=== PATIENT | male | born 1990 | race Caucasian/White ===

== ENCOUNTER 2019-01-22 09:36 | Emergency (ER) | payer SELFPAY ==
[~2019-01-22] VITALS: Ht 185.4 cm; Wt 72.6 kg
[2019-01-22 09:40] VITALS: BP 172/97
[2019-01-22] MEDS ORDERED: LORazepam 1 MG TAB PO ONE (09:45)
--- NOTE | 2019-01-22 09:45 | NUR ---
28 Y.O. MALE. BIBA. PT CAME IN WITH 4 POINT RESTRAINTS. PT ADMITS TO USE OF METHAMPHETAMINE. PER EMS PT RAN OUT OF GAS AND WAS PULLED OVER BY PD. PT WAS FOUND TO BE UNDER THE INFLUENCE WHILE DRIVING. BROUGHT IN TO ED FOR PRE BOOKING. PT WAS GIVEN VERSED 5 MG IM L DELTOID BY EMS FOR ANXIETY. AAO X4. ABLE TO VERBALIZE NEEDS. PERRLA, BRISK 7 MM. EQUAL BILATERAL UPPER AND LOWER EXTREMITIES. NO SOB NOTED. PAIN STATES 5/10 TO LOWER BACK. PT PLACED ON LEAD ELECTRICAL ENGINEER. HOB UP. ON LOW BED POSITION, LOCKED. BED SIDE RAILS UP X2. ER MADE AWARE OF PT STATUS. WILL CONTINUE TO MONITOR.
--- NOTE | 2019-01-22 09:47 | NUR ---
DR STEPHENS AT BEDSIDE FOR PT EVALUATION
--- NOTE | 2019-01-22 09:50 | NUR ---
ANXIOUS, COOPERATIVE AAO X 4 PT, TOOK ORAL 1 MG ATIVAN PILL WITHOUT DIFFICULTY, ASKING FOR MORE MEDICATIONS, DR STEPHENS AWARE.
[2019-01-22] MEDS ORDERED: LORazepam 1 MG TAB ONE (09:52)
--- NOTE | 2019-01-22 10:15 | NUR ---
[address] [place] [employer] AT BEDSIDE WITH CONTRACTED LAB PERSONNEL FROM [employer]
--- NOTE | 2019-01-22 10:20 | NUR ---
PT PREFER TO BE ON RESTRAINT OVER THE HAND CUFF, [place] [employer] AT BEDSIDE. [employer]ER[employer] TE[employer]ER LINDA AND DR STEPHENS NOTIFIED.
--- NOTE | 2019-01-22 10:35 | NUR ---
ANXIOUS COOPERATIVE PT TAKEN OFF 4 POINT RESTRAINT AND RT HAND PLACED ON HANDCUFF BY LEO REED
--- NOTE | 2019-01-22 10:43 | NUR ---
Elaina castellanos in EDM - 01/22/19 at 1106 by ADRIAN PT PREFER TO BE ON RESTRAINT OVER THE HAND CUFF, [place] [employer] AT BEDSIDE. [employer] LINDA AND DR STEPHENS NOTIFIED.
--- NOTE | 2019-01-22 11:00 | NUR ---
LAB AT BEDSIDE
[2019-01-22 11:09] LABS: EOSINOPHILS % (AUTO) 0.3 % (0.0-4.0); HEMATOCRIT 45.1 % (36-52); HEMOGLOBIN 15.8 g/dL (12.0-18.0); LYMPHOCYTES # (AUTO) 0.4 K/uL (2.0-11.5); LYMPHOCYTES % (AUTO) 3.1 % (20.5-51.1); MEAN CORPUSCULAR HEMOGLOBIN 30 pg (27-31); MEAN CORPUSCULAR HGB CONC 35 g/dL (33-37); MEAN CORPUSCULAR VOLUME 84.5 fL (80-94); MONOCYTES # (AUTO) 0.8 K/uL (0.8-1.0); MONOCYTES % (AUTO) 6.1 % (1.7-9.3); NEUTROPHILS # (AUTO) 12.4 K/uL (1.8-7.7); NEUTROPHILS % (AUTO) 90.5 % (42.2-75.2); PLATELET COUNT (AUTO) 346 K/uL (140-450); RED BLOOD CELL COUNT(AUTO) 5.33 MIL/uL (4.20-6.10); RED CELL DISTRIBUTION WIDTH 13.8 % (11.6-13.7); WHITE BLOOD COUNT (AUTO) 13.7 K/uL (4.8-10.8)
[2019-01-22] MEDS ORDERED: HALOPERIDOL IM 5 MG/ML VIAL IM ONE (11:15)
--- NOTE | 2019-01-22 11:15 | NUR ---
PT IS VERY ANXIOUS AND HYPERVENTILATING. DR STEPHENS MADE AWARE.
[2019-01-22] MEDS ORDERED: HALOPERIDOL IM 5 MG/ML VIAL ONE (11:24)
[2019-01-22 11:26] LABS: ANION GAP 20.7 (8-16); CARBON DIOXIDE 22.7 mmol/L (21-32); POTASSIUM 3.4 mmol/L (3.5-5.1)
[2019-01-22 11:32] LABS: ALBUMIN 4.8 g/dL (3.4-5.0); TOTAL BILIRUBIN 1.1 mg/dL (0.0-1.0)
--- NOTE | 2019-01-22 11:45 | NUR ---
PT IS CALM AND RESTING AT THIS TIME. EASILY AROUSABLE. [place] [employer] AT BEDSIDE.
[2019-01-22 13:05] VITALS: BP 121/74
--- NOTE | 2019-01-22 13:05 | NUR ---
Patient discharged with v/s stable. Written and verbal after care instructions given and explained. Patient verbalized understanding. Police with in custody. All questions addressed prior to discharge. Advised to follow up with PMD.
== END 2019-01-22 13:05 ==
LOC: MED 09:36
DX: F15.129 Other stimulant abuse with intoxication, unspecified (principal)
CPT/HCPCS: 36415; 80053; 82550; 85025; 96372; 99283; J1630